=== PATIENT | male | born 1965 | race Caucasian/White ===

== ENCOUNTER 2016-10-03 16:28 | Observation (INO) | payer MEDICARE, MEDICAID ==
[~2016-10-03] VITALS: Ht 180.3 cm; Wt 110.9 kg
[2016-10-03 18:11] LABS: BASOPHILS 0.5 % (0.0-2.0); EOSINOPHILS 3.9 % (0-7); HEMATOCRIT 42.1 % (42.0-54.0); HEMOGLOBIN 14.8 g/dL (13.5-17.5); IMMATURE GRANULOCYTES 0.7 % (0-5); LYMPHOCYTES 47.7 % (15-50); MCH 30.1 pg (26.0-34.0); MCHC 35.2 g/dL (31.0-37.0); MCV 85.7 fL (80.0-100.0); MEAN PLATELET VOLUME 11.8 fL (7.4-10.4); MONOCYTES 7.7 % (2-11); NEUTROPHILS 39.5 % (40-80); PLATELET COUNT 123 10x3/uL (130-400); RBC 4.91 10x6/uL (4.20-6.10); RDW 13.6 % (11.5-14.5); WBC 4.2 10x3/uL (4.8-10.8)
[2016-10-03 18:17] LABS: APPEARANCE CLEAR (CLEAR); BILIRUBIN NEGATIVE (NEGATIVE); COLOR YELLOW (YELLOW); GLUCOSE 1000 mg/dL (NEGATIVE); KETONE NEGATIVE (NEGATIVE); LEUKOCYTE ESTERASE NEGATIVE (NEGATIVE); NITRITE NEGATIVE (NEGATIVE); PROTEIN NEGATIVE (NEGATIVE); UROBILINOGEN NORMAL (NORMAL)
[2016-10-03 18:18] LABS: BACTERIA NONE SEEN /hpf (NONE SEEN); EPITHELIAL CELLS NSEEN /hpf (0-5); RED CELLS - URINE 0-5 /hpf (0-5); WHITE CELLS - URINE NSEEN /hpf (0-5)
[2016-10-03 18:24] LABS: KETONE - SERUM NEGATIVE (NEGATIVE)
[2016-10-03 18:34] LABS: ALBUMIN 4.1 g/dL (3.4-5.0); ALKALINE PHOSPHATASE 64 U/L (46-116); ALT (SGPT) 49 U/L (10-68); CALCIUM 9.1 mg/dL (8.5-10.1); CARBON DIOXIDE 23.9 mmol/L (21.0-32.0); CHLORIDE - SERUM 98 mmol/L (98-107); CREATINE KINASE 203 UL (21-232); CREATININE - SERUM 1.3 mg/dL (0.6-1.3); POTASSIUM - SERUM 4.1 mmol/L (3.5-5.1); PROTEIN - SERUM 7.8 g/dL (6.4-8.2); SODIUM 136 mmol/L (136-145); UREA NITROGEN 32 mg/dL (7-18); eGFR NON AFRICAN AMERICAN 61 mL/min (90-120)
[2016-10-03 18:39] LABS: CALC OSMOLALITY 286 mosm/kg (275-300); GLUCOSE 234 mg/dL (74-106); TROPONIN-I < 0.017 ng/mL (0.000-0.060)
--- NOTE | 2016-10-03 19:35 | NUR ---
REPORT RECEIVED FROM WILL RANDALL.
--- NOTE | 2016-10-03 19:47 | NUR ---
ARRIVED TO FLOOR VIA WHEELCHAIR, ACCOMPANIED BY HOSPITAL STAFF. ORIENTED TO UNIT. PLACED ON TELEMETRY, CALL LIGHT IN REACH. PLAN OF CARE DISCUSSED. WILL CONTINUE TO MONITOR. SEE NURSE ASSESSMENT.
[2016-10-03 20:00] VITALS: BP 129/76
[2016-10-03 20:32] VITALS: BP 129/76; Ht 180.3 cm; Wt 110.9 kg
[2016-10-04] VITALS: BP 106/63
[2016-10-04 01:20] LABS: CKMB 2.9 U/L (0.0-3.6); CREATINE KINASE 135 UL (21-232)
[2016-10-04 01:39] LABS: TROPONIN-I < 0.017 ng/mL (0.000-0.060)
[2016-10-04 04:00] VITALS: BP 136/83
[2016-10-04] MEDS ORDERED: LOVAZA1 G PO (05:53)
[2016-10-04] MEDS ORDERED: CRESTOR40 MG PO (05:53)
[2016-10-04] MEDS ORDERED: FENOFIBRATE160 MG PO (05:54)
[2016-10-04] MEDS ORDERED: GLIMEPIRIDE4 MG PO (05:54)
[2016-10-04] MEDS ORDERED: OMEPRAZOLE20 M1 PO (05:54)
[2016-10-04] MEDS ORDERED: INVOKAMET 150-1 EACH PO (05:55)
[2016-10-04] MEDS ORDERED: LISINOPRIL2.5 MG PO (05:55)
[2016-10-04] MEDS ORDERED: BRILINTA90 MG PO (05:55)
[2016-10-04] MEDS ORDERED: ISOSORBIDE MONO60 M1 PO (05:56)
[2016-10-04] MEDS ORDERED: METOPROLOL TAR100 M1 PO (05:56)
[2016-10-04] MEDS ORDERED: VICTOZA0.6 MG/0.1 SQ (05:56)
[2016-10-04] MEDS ORDERED: HYDROCODONE-APA1 TAB PO (05:57)
[2016-10-04] MEDS ORDERED: LYRICA100 MG PO (05:59)
[2016-10-04] MEDS ORDERED: ISOSORBIDE MONO30 M1 PO (06:01)
[2016-10-04] MEDS ORDERED: NITROQUICK0.4 MG SL (06:01)
[2016-10-04] MEDS ORDERED: SEREVENT D50 MCG/DIS INH (06:01)
[2016-10-04] MEDS ORDERED: VALIUM5 MG PO (06:02)
[2016-10-04 06:38] LABS: CKMB 2.9 U/L (0.0-3.6); CREATINE KINASE 125 UL (21-232)
[2016-10-04 06:40] LABS: TROPONIN-I < 0.017 ng/mL (0.000-0.060)
--- NOTE | 2016-10-04 07:30 | NUR ---
RECEIVED PT IN BED EYES CLOSED RESP UNLABORED NAD NOTED
[2016-10-04 08:00] VITALS: BP 108/77
[2016-10-04 12:00] VITALS: BP 123/78
[2016-10-04 14:07] LABS: CKMB 2.8 U/L (0.0-3.6); CREATINE KINASE 123 UL (21-232); TROPONIN-I < 0.017 ng/mL (0.000-0.060)
--- NOTE | 2016-10-04 15:20 | NUR ---
REVIEWED DISCHARGE INSTRUCTIONS PT STATE UNDERSTANDING COPY GIVEN TO PT DCD SALINE LOCK TO RAC WITH 20 GA IV CATH INTACT NO REDNESS OR EDEMA NOTED TO SITE
--- NOTE | 2016-10-04 15:25 | NUR ---
PT DISCHARGED HOME IN STABLE CONDITION LEFT UNIT VIA W/C WITH ALL PERSONAL BELONGINGS
== END 2016-10-04 15:25 | disposition home or self-care (01) ==
LOC: D.ER 16:28 → OBSVTIME 18:53 → D.M2 18:53 → D.SDCHOLD 10-04 14:01 → D.M2 10-04 14:01
PROVIDERS: Emergency Medicine; ADMIT Family Medicine
DX: M25.512 Pain in left shoulder (principal); I25.110 Atherosclerotic heart disease of native coronary artery with unstable angina pectoris; Z95.5 Presence of coronary angioplasty implant and graft; E11.65 Type 2 diabetes mellitus with hyperglycemia; I10 Essential (primary) hypertension; E78.5 Hyperlipidemia, unspecified; Z87.891 Personal history of nicotine dependence

== ENCOUNTER 2016-10-31 15:16 | Emergency (ER) | payer MEDICARE, MEDICAID ==
[2016-10-03 20:32] VITALS: BMI 31.3
[~2016-10-31 15:16] MED LIST: BRILINTA90 MG PO; CRESTOR40 MG PO; FENOFIBRATE160 MG PO; GLIMEPIRIDE4 MG PO; HYDROCODONE-APA1 TAB PO; INVOKAMET 150-1 EACH PO; ISOSORBIDE MONO30 M1 PO; ISOSORBIDE MONO60 M1 PO; LISINOPRIL2.5 MG PO; LOVAZA1 G PO; LYRICA100 MG PO; METOPROLOL TAR100 M1 PO; NITROQUICK0.4 MG SL; OMEPRAZOLE20 M1 PO; SEREVENT D50 MCG/DIS INH; VALIUM5 MG PO; VICTOZA0.6 MG/0.1 SQ
[2016-10-31 16:55] LABS: BASOPHILS 0.3 % (0.0-2.0); EOSINOPHILS 2.8 % (0-7); HEMATOCRIT 39.7 % (42.0-54.0); HEMOGLOBIN 13.7 g/dL (13.5-17.5); IMMATURE GRANULOCYTES 0.3 % (0-5); LYMPHOCYTES 22.8 % (15-50); MCH 29.7 pg (26.0-34.0); MCHC 34.5 g/dL (31.0-37.0); MCV 86.1 fL (80.0-100.0); MEAN PLATELET VOLUME 11.4 fL (7.4-10.4); MONOCYTES 7.5 % (2-11); NEUTROPHILS 66.3 % (40-80); PLATELET COUNT 119 10x3/uL (130-400); RBC 4.61 10x6/uL (4.20-6.10); RDW 13.9 % (11.5-14.5); WBC 6.1 10x3/uL (4.8-10.8)
[2016-10-31 17:09] LABS: ALBUMIN 3.9 g/dL (3.4-5.0); ALKALINE PHOSPHATASE 52 U/L (46-116); ALT (SGPT) 57 U/L (10-68); BILIRUBIN - TOTAL 0.35 mg/dL (0.2-1.3); CALC OSMOLALITY 283 mosm/kg (275-300); CALCIUM 9.1 mg/dL (8.5-10.1); CHLORIDE - SERUM 100 mmol/L (98-107); CREATININE - SERUM 1.5 mg/dL (0.6-1.3); GLUCOSE 219 mg/dL (74-106); POTASSIUM - SERUM 4.3 mmol/L (3.5-5.1); PROTEIN - SERUM 7.8 g/dL (6.4-8.2); SODIUM 137 mmol/L (136-145); UREA NITROGEN 22 mg/dL (7-18); eGFR NON AFRICAN AMERICAN 52 mL/min (90-120)
[2016-10-31 17:12] LABS: CREATINE KINASE 156 UL (21-232); TROPONIN-I < 0.017 ng/mL (0.000-0.060)
== END 2016-10-31 19:45 | disposition home or self-care (01) ==
LOC: D.ER 15:16
PROVIDERS: Physician Assistant
DX: R07.9 Chest pain, unspecified (principal); M79.602 Pain in left arm; I25.10 Atherosclerotic heart disease of native coronary artery without angina pectoris; E11.9 Type 2 diabetes mellitus without complications; J44.9 Chronic obstructive pulmonary disease, unspecified; I10 Essential (primary) hypertension; I44.0 Atrioventricular block, first degree

== ENCOUNTER 2016-12-04 18:29 | Emergency (ER) | payer MEDICARE, MEDICAID ==
[2016-10-03 20:32] VITALS: BMI 31.3
[2016-12-04 18:58] LABS: BASOPHILS 0.2 % (0.0-2.0); EOSINOPHILS 3.1 % (0-7); HEMATOCRIT 40.1 % (42.0-54.0); HEMOGLOBIN 13.6 g/dL (13.5-17.5); IMMATURE GRANULOCYTES 1.4 % (0-5); LYMPHOCYTES 42.5 % (15-50); MCH 29.4 pg (26.0-34.0); MCHC 33.9 g/dL (31.0-37.0); MCV 86.8 fL (80.0-100.0); MEAN PLATELET VOLUME 11.2 fL (7.4-10.4); MONOCYTES 7.4 % (2-11); NEUTROPHILS 45.4 % (40-80); PLATELET COUNT 111 10x3/uL (130-400); RBC 4.62 10x6/uL (4.20-6.10); RDW 13.4 % (11.5-14.5); WBC 4.2 10x3/uL (4.8-10.8)
[2016-12-04 19:16] LABS: ALBUMIN 3.8 g/dL (3.4-5.0); ANION GAP 17.5 mmol/L (8-16); BILIRUBIN - TOTAL 0.27 mg/dL (0.2-1.3); CALCIUM 8.7 mg/dL (8.5-10.1); CARBON DIOXIDE 21.8 mmol/L (21.0-32.0); CREATININE - SERUM 1.3 mg/dL (0.6-1.3); POTASSIUM - SERUM 4.3 mmol/L (3.5-5.1); PROTEIN - SERUM 7.6 g/dL (6.4-8.2)
== END 2016-12-05 01:10 | disposition home or self-care (01) ==
LOC: D.ER 18:29
PROVIDERS: Family Medicine
DX: E11.65 Type 2 diabetes mellitus with hyperglycemia (principal); Z79.4 Long term (current) use of insulin; J44.9 Chronic obstructive pulmonary disease, unspecified; I10 Essential (primary) hypertension; I25.10 Atherosclerotic heart disease of native coronary artery without angina pectoris

== ENCOUNTER 2016-12-14 18:32 | Emergency (ER) | payer MEDICARE, MEDICAID ==
[2016-10-03 20:32] VITALS: BMI 31.3
[2016-12-14 19:53] LABS: BASOPHILS 0.3 % (0.0-2.0); EOSINOPHILS 3.3 % (0-7); HEMATOCRIT 41.4 % (42.0-54.0); HEMOGLOBIN 14.1 g/dL (13.5-17.5); IMMATURE GRANULOCYTES 0.8 % (0-5); LYMPHOCYTES 44.9 % (15-50); MCH 29.9 pg (26.0-34.0); MCHC 34.1 g/dL (31.0-37.0); MCV 87.9 fL (80.0-100.0); MEAN PLATELET VOLUME 12.5 fL (7.4-10.4); MONOCYTES 7.4 % (2-11); NEUTROPHILS 43.3 % (40-80); PLATELET COUNT 101 10x3/uL (130-400); RBC 4.71 10x6/uL (4.20-6.10); WBC 3.9 10x3/uL (4.8-10.8)
[2016-12-14 19:56] LABS: APPEARANCE CLEAR (CLEAR); COLOR STRAW (YELLOW); LEUKOCYTE ESTERASE NEGATIVE (NEGATIVE); NITRITE NEGATIVE (NEGATIVE); PROTEIN NEGATIVE (NEGATIVE); SPECIFIC GRAVITY 1.015 (1.005-1.020)
[2016-12-14 19:57] LABS: BILIRUBIN NEGATIVE (NEGATIVE); GLUCOSE 250 mg/dL (NEGATIVE); KETONE NEGATIVE (NEGATIVE); UROBILINOGEN NORMAL (NORMAL)
[2016-12-14 20:01] LABS: ALBUMIN 4.1 g/dL (3.4-5.0); ALKALINE PHOSPHATASE 54 U/L (46-116); ALT (SGPT) 62 U/L (10-68); BILIRUBIN - TOTAL 0.38 mg/dL (0.2-1.3); CALC OSMOLALITY 286 mosm/kg (275-300); CALCIUM 9.6 mg/dL (8.5-10.1); CHLORIDE - SERUM 98 mmol/L (98-107); CREATININE - SERUM 1.5 mg/dL (0.6-1.3); GLUCOSE 335 mg/dL (74-106); POTASSIUM - SERUM 5.2 mmol/L (3.5-5.1); SODIUM 133 mmol/L (136-145); UREA NITROGEN 35 mg/dL (7-18); eGFR NON AFRICAN AMERICAN 52 mL/min (90-120)
[2016-12-14 20:07] LABS: KETONE - SERUM NEGATIVE (NEGATIVE)
[2016-12-14 20:22] LABS: AMYLASE - SERUM 31 U/L (25-115); CREATINE KINASE 403 UL (21-232); LIPASE 198 U/L (73-393); PRO BNP 30 pg/mL (0-125); THYROID STIMULATING HORMONE 2.12 uIU/mL (0.36-3.74)
[2016-12-14 20:26] LABS: HEMOGLOBIN A1C 7.3 % (4.8-6.0); TROPONIN-I < 0.017 ng/mL (0.000-0.060)
[2016-12-14 20:27] LABS: CKMB 6.7 U/L (0.0-3.6)
== END 2016-12-14 20:48 | disposition home or self-care (01) ==
LOC: D.ER 18:32
PROVIDERS: Emergency Medicine; Family Medicine
DX: E11.65 Type 2 diabetes mellitus with hyperglycemia (principal); Z79.4 Long term (current) use of insulin; J44.9 Chronic obstructive pulmonary disease, unspecified; I10 Essential (primary) hypertension; I44.0 Atrioventricular block, first degree

== ENCOUNTER 2016-12-27 18:34 | Emergency (ER) | payer MEDICARE, MEDICAID ==
[2016-10-03 20:32] VITALS: BMI 31.3
== END 2016-12-27 22:26 | disposition left against medical advice (07) ==
LOC: D.ER 18:34
DX: M54.12 Radiculopathy, cervical region (principal); M54.16 Radiculopathy, lumbar region; R51 Headache; E11.9 Type 2 diabetes mellitus without complications; Z79.4 Long term (current) use of insulin; V89.2XXA Person injured in unspecified motor-vehicle accident, traffic, initial encounter; Y93.89 Activity, other specified; Y92.410 Unspecified street and highway as the place of occurrence of the external cause; J44.9 Chronic obstructive pulmonary disease, unspecified; I10 Essential (primary) hypertension

== ENCOUNTER 2016-12-28 10:34 | Emergency (ER) | payer MEDICARE, MEDICAID ==
[2016-10-03 20:32] VITALS: BMI 31.3
== END 2016-12-28 13:24 | disposition home or self-care (01) ==
LOC: D.ER 10:34
DX: M54.5 Low back pain (principal)

== ENCOUNTER 2017-09-09 19:42 | Emergency (ER) | payer MEDICARE, MEDICAID ==
[2016-10-03 20:32] VITALS: BMI 31.3
[2017-09-09 20:08] LABS: BASOPHILS 0.4 % (0-2); EOSINOPHILS 4.6 % (0-7); HEMATOCRIT 39.4 % (42.0-54.0); HEMOGLOBIN 13.7 g/dL (13.5-17.5); IMMATURE GRANULOCYTES 0.2 % (0-5); LYMPHOCYTES 36.3 % (15-50); MCH 30.4 pg (26.0-34.0); MCHC 34.8 g/dL (31.0-37.0); MCV 87.6 fL (80.0-100.0); MEAN PLATELET VOLUME 12.1 fL (7.4-10.4); MONOCYTES 7.6 % (2-11); NEUTROPHILS 50.9 % (40-80); PLATELET COUNT 100 10x3/uL (130-400); RDW 13.5 % (11.5-14.5); WBC 4.7 10x3/uL (4.8-10.8)
[2017-09-09 20:19] LABS: ALKALINE PHOSPHATASE 51 U/L (46-116); ALT (SGPT) 72 U/L (10-68); BILIRUBIN - TOTAL 0.32 mg/dL (0.2-1.3); CALC OSMOLALITY 284 mosm/kg (275-300); CARBON DIOXIDE 19.9 mmol/L (21.0-32.0); CHLORIDE - SERUM 101 mmol/L (98-107); CREATININE - SERUM 1.4 mg/dL (0.6-1.3); PROTEIN - SERUM 7.4 g/dL (6.4-8.2); SODIUM 138 mmol/L (136-145); UREA NITROGEN 28 mg/dL (7-18); eGFR NON AFRICAN AMERICAN 56 mL/min (90-120)
[2017-09-09 20:22] LABS: GLUCOSE 146 mg/dL (74-106)
[2017-09-09 20:32] LABS: CKMB 3.5 U/L (0.0-3.6); CREATINE KINASE 193 UL (21-232)
[2017-09-09 20:48] LABS: TROPONIN-I < 0.017 ng/mL (0.000-0.060)
== END 2017-09-09 22:00 | disposition home or self-care (01) ==
LOC: D.ER 19:42
PROVIDERS: Family Medicine
DX: R07.9 Chest pain, unspecified (principal); I10 Essential (primary) hypertension; E11.9 Type 2 diabetes mellitus without complications; Z79.4 Long term (current) use of insulin

== ENCOUNTER 2017-10-26 07:53 | Emergency (ER) | payer MEDICARE, MEDICAID ==
[2016-10-03 20:32] VITALS: BMI 31.3
== END 2017-10-26 10:27 | disposition home or self-care (01) ==
LOC: D.ER 07:53
DX: J20.9 Acute bronchitis, unspecified (principal); J44.9 Chronic obstructive pulmonary disease, unspecified; E11.9 Type 2 diabetes mellitus without complications; Z79.4 Long term (current) use of insulin; I10 Essential (primary) hypertension

== ENCOUNTER 2017-12-28 19:02 | Emergency (ER) | payer MEDICARE, MEDICAID ==
[2016-10-03 20:32] VITALS: BMI 31.3
== END 2017-12-28 21:08 | disposition home or self-care (01) ==
LOC: D.ER 19:02
DX: M54.30 Sciatica, unspecified side (principal); M62.838 Other muscle spasm; J44.9 Chronic obstructive pulmonary disease, unspecified; I10 Essential (primary) hypertension; E11.9 Type 2 diabetes mellitus without complications; Z79.4 Long term (current) use of insulin

== ENCOUNTER 2018-02-11 13:30 | Emergency (ER) | payer MEDICARE, MEDICAID ==
[~2018-02-11] VITALS: Ht 180.3 cm; Wt 107.7 kg
[2018-02-11 13:47] VITALS: BP 152/80; Ht 180.3 cm; Wt 107.7 kg
== END 2018-02-11 15:40 | disposition left against medical advice (07) ==
LOC: D.ER 13:30
DX: M25.511 Pain in right shoulder (principal)

== ENCOUNTER 2018-03-02 17:57 | Emergency (ER) | payer MEDICARE, MEDICAID ==
[~2018-03-02] VITALS: Ht 180.3 cm; Wt 108.2 kg
[2018-03-02 19:11] VITALS: BP 112/74; Ht 180.3 cm; Wt 108.2 kg
== END 2018-03-02 20:10 | disposition left against medical advice (07) ==
LOC: D.ER 17:57
DX: M54.2 Cervicalgia (principal)

== ENCOUNTER 2018-08-09 17:27 | Observation (INO) | payer MEDICARE, MEDICAID ==
[~2018-08-09] VITALS: Ht 177.8 cm; Wt 105.2 kg
--- NOTE | ~2018-08-09 | CN ---
PATIENT NAME:ROBERT TSE [place] MEDICAL RECORD: [id number] : 61 LOCATION:D. D.2121 ADMIT DATE: 08/09/18 ACCOUNT: [id number] CONSULTING PHYSICIAN: BRENDEN DAVIS MD REFERRING PHYSICIAN: ZHANNA SOLER MD DATE OF CONSULTATION: 08/10/2018 HISTORY OF PRESENT ILLNESS: A 52-year-old gentleman with known history of coronary artery disease, status post intervention, has a history of dyslipidemia as well as hypertension and diabetes. Recently he has had chest burning and pressure, reminiscent previous angina. We are asked to see him concerning his cardiovascular status. PAST MEDICAL HISTORY: Includes: 1. History of hypertension. 2. Hyperlipidemia. 3. Coronary artery disease as above. SOCIAL HISTORY: He is a nonsmoker, nondrinker. Easily takes care of all his ADLs. ALLERGIES: SULFA. MEDICATIONS: Include Crestor 40 mg p.o. daily, Amaryl 4 mg p.o. daily, fenofibrate 160 mg daily, Brilinta 90 b.i.d., lisinopril 2.5 every day, Victoza 0.6 daily, Imdur 60 mg p.o. daily, Lopressor 100 b.i.d., Lyrica 100 b.i.d., Serevent Diskus 1 puff b.i.d. REVIEW OF SYSTEMS: The patient reports easy bruising but reports no swollen glands. The patient reports no fever, no night sweats, no significant weight gain, no significant weight loss. No significant exercise tolerance. The patient reports no dry eyes, no irritation, no vision change. Patient reports no difficulty hearing and no ear pain. Patient reports no frequent nose bleeds or nose and sinus problems. Patient reports on arm pain on exertion. No shortness of breath while lying down. No history of heart murmur. Patient reports no cough, no wheezing or coughing up blood. Patient reports no abdominal pain, no vomiting. Normal appetite. No diarrhea and not vomiting blood. No nausea and no constipation. Patient reports no incontinence. No difficulty urinating. No hematuria. No increased frequency. Patient reports no muscle aches. No weakness, no arthralgias, no back pain. No swelling of the extremities. Patient reports no abnormal mole, no jaundice, no rashes. Reports no loss of consciousness. No weakness and no numbness. No seizures, dizziness, or headaches. The patient reports no depression, no sleep disturbance, feeling safe in a relationship and no alcohol abuse. Patient reports on fatigue. Reports no runny nose or sinus pressure. No itching, no hives, and no frequent sneezing. PHYSICAL EXAMINATION: GENERAL: Pleasant gentleman, in no acute distress, appears stated age. VITAL SIGNS: Blood pressure 126/76, pulse 82 and regular. HEENT: Normocephalic, atraumatic. NECK: No JVD or bruit. HEART: Regular. LUNGS: Lung mesa clear. ABDOMEN: Soft, nontender. CONSULT REPORT [id number] ROBERT TSE EXTREMITIES: Pulses 2+ with no edema. NEUROLOGIC: Grossly intact. DIAGNOSTIC DATA: ECG shows nonspecific ST-T changes. IMPRESSION: Acute coronary syndrome. PLAN: Plan for diagnostic angiography, intervention based on the above. TRANSINT:[id number] Voice Confirmation ID: [id number] DOCUMENT ID: [id number] BRENDEN DAVIS MD CC: [id number] DICTATION DATE: 08/10/18831 TUNNEL KILN REPAIRER: 08/10/18911 ADM IN [place] [id number] [place] [id number]
--- NOTE | ~2018-08-09 | OP ---
PATIENT NAME: ROBERT TSE [place] MEDICAL RECORD: [id number] :61 LOCATION:D.M2 D.2121 ADMISSION DATE:08/09/18 SURGEON: BRENDEN DAVIS MD DATE OF OPERATION: 08/10/2018 PROCEDURE: Left heart catheterization, selective coronary angiography, PTCA to diagonal, right femoral artery approach. CATHETERS: A 5-Trinidadian sheath, 5/4 left and right Dwayne, 5/4 pig. The procedure was well tolerated. Proceed to PTCA of the diagonal. FINDINGS: Left ventriculography in 30-degree COLMENARES view; normal wall motion and normal systolic function. CORONARY ANATOMY: LEFT MAIN: Left main is free of disease. LAD: LAD has 2 overlapping stents in its proximal to mid portion. These are widely patent; however, there is a fairly large diagonal branch. It is snowplowed from previous intervention. CIRCUMFLEX: Circumflex is free of disease. RIGHT CORONARY ARTERY: Area of previous intervention patent with no evidence of restenosis. No progression of nome disease. PLAN: Intervention to the diagonal momentarily. DESCRIPTION OF PROCEDURE: A 5-Trinidadian sheath was exchanged for a 6-Trinidadian sheath. XB LAD guiding catheter provided good guide support followed by 300-cm Whisper wire was placed across tightly occluded diagonal down this portion of vessel. We were able to pass a 1.5 and 2.0 balloon through the stent struts and inflated it up to 12 atmospheres. Both inflations showed 50% residual. Larger balloons and/or stents had been placed through the struts of the stent. Procedure was well tolerated at this point. IMPRESSION: Successful PTCA of diagonal through the interlocking stent struts with 50% residual, improvement from 90%. LOIS flow was 3 throughout the procedure. Integrilin was used in the case. Sheath was closed with ExoSeal device. TRANSINT:[id number] Voice Confirmation ID: [id number] DOCUMENT ID: [id number] BRENDEN DAVIS MD CC: [id number] DICTATION DATE: 08/10/18 1412 SIGN LETTERER: 08/10/18 1727 DIS IN 08/10/18 [facility] [address] [place] [id number]
--- NOTE | ~2018-08-09 | MORECARE ---
CASE MANAGEMENT DISCHARGE SUMMARY PATIENT: ROBERT TSE [place] UNIT: [id number] ADM DATE: 08/09/18 AGE: 52 : 63 SEX: M ROOM/BED: D.2121 AUTHOR: NGOZI HERNANDEZ PHYSICIAN: REFERRING PHYSICIAN: ZHANNA SOLER MD DATE OF SERVICE: 08/11/18 Discharge Plan Patient Name[facility]SE [facility] [facility] 1965 Planned Disposition: Home Anticipated Discharge Date: 08/10/18 Discharge Date: 08/10/2018 Expected LOS: 1 Initial Reviewer: [email or web address] Initial Review Date: 08/11/2018 Generated: 08/11/18 12:54 pm Patient Name: ROBERT TSE Page [phone] at 1155 All edits/amendments must be made on the electronic document DICTATION DATE: 08/11/18 1154 BLASTER HELPER: MAY 08/11/18 1154 RPT#: [id number] DC DATE:08/10/18 STATUS: DIS IN [facility] [address] [place] [address] END OF REPORT
--- NOTE | ~2018-08-09 | HEMODYNAMI ---
PATIENT:ROBERT TSE [place] MEDICAL RECORD: [id number] : 61 LOCATION:[address] ADMISSION DATE: 08/09/18 Generatedon:08/10/201814:12 Patient name: ROBERT TSE Patient #: [id number] SSN: : 1965 Date of study: 08/10/2018 Page: Of Hemodynamic Procedure Report Patient Data Patient Demographics Procedure consent was obtained First Name: ROBERT Gender: Male Last Name: CARMENCITA : 1965 [facility] Initial: [place] Age: 52 year(s) Patient #: [id number] Race: Unknown Additional ID: [id number] Contact details Address: [address] [place] [address] State: [place] City: [facility] Zip code: [address] Admission Admission Data Admission Date: 08/09/2018 Admission Time: 19:01 Room #: D.2121 Height (in.): 69.69 BSA: 2.21 (m2) Height (cm.): 177 BMI: 33.52 (kg/m2) Weight (lbs.): 231.49 Weight (kg.): 105 Lab Results Lab Result Date: 08/10/2018 Lab Result Time: 0:00 Biochemistry Name Units Result Min Max BUN mg/dl 34 --(----)-* 7 18 Creatinine mg/dl 1.3 --(---*)-- 0.6 1.3 CBC Name Units Result Min Max Hemoglobin g/dl 14 --(*---)-- 13.5 17.5 Procedure Procedure Types Cath Procedure Diagnostic Procedure LHC LHC w/Coronaries PCI Procedure PTCA PTCA Initial Procedure Description Procedure Date Procedure Date: 08/10/2018 Procedure Start Time: 13:36 Procedure End Time: 14:02 Procedure Staff Name Function Arnoldo Ordaz MD Performing Physician Shiela Meade RT Monitor Maite Mota RN Nurse Gaby Gu RT Scrub Procedure Data Cath Procedure Fluoroscopy Diagnostic fluoroscopy Total fluoroscopy Time: 9.2 time: 9.2 min min Diagnostic fluoroscopy Total fluoroscopy dose: dose: 1578 mGy 1578 mGy Contrast Material Contrast Material Type Amount (ml) Isovue 300 108 Entry Location Entry Primary Successful Side Size Upsize Upsize Entry Closure Succes sful Closure Location (Fr) 1 (Fr) 2 (Fr) Remarks Device Remarks Femoral Right 5 Fr 6 Fr Exoseal artery Short Estimated blood loss: 5 ml Diagnostic catheters Device Type Used For End Catheter Placement MULTIPACK JL 4.0 5Fr Left Coronary catheter Angiography MULTIPACK 3DRC 5Fr Right Coronary catheter Angiography MULTIPACK Pigtail 5 Fr Multi-vessel catheter Angiography Procedure Complications No complications Procedure Medications Medication Administration Route Dosage Oxygen etCO2 Nasal cannula 2 l/min Lidocaine 2% added to field 20 Heparin Flush Bag added to field 2 bags (1000units/500ml NS) 0.9% NaCl I.V. 100 ml/hr Versed I.V. 2 mg Fentanyl I.V. 100 mcg Heparin Bolus I.V. 4000 units Integrilin (Bolus I.V. 9.5 ml 2mg/ml) Versed I.V. 2 mg Fentanyl I.V. 100 mcg Brilinta P.O. 180 mg Hemodynamics Rest BSA: 2.21 (m2) HGB: 14 (g/dl) O2 Consumption: Estimated: 267.49 (ml/min) O2 Cons umption indexed: Estimated:121.04 (ml/min/m) Heart Rate: 76 (bpm) Pressure Samples Time Site Value (mmHg) Purpose Heart Use Rate(bpm) 13:42 LV 138/8,13 Snapshot 85 Gradients Valve Time Site Site Mean SEP/DFP Peak To Heart Use 1 2 (mmHg) (sec/min) Peak Rate (mmHg) (bpm) Aortic 13:42 LV AO 80 Snapshots Pre Cath Intra NCS Post Cath Vital Signs Time Heart Resp SPO2 etCO2 NIBP (mmHg) Rhythm Pain Sedation Rate (ipm) (%) (mmHg) Status Level (bpm) 13:20:48 74 16 94 24.9 151/79(125) NSR 0 (11) 10(A) , No pain 13:25:06 76 15 96 34.8 143/82(99) NSR 0 (11) 10(A) , No pain 13:29:24 74 15 97 17.4 151/85(100) NSR 0 (11) 10(A) , No pain 13:33:38 79 15 96 19.6 140/86(103) NSR 0 (11) 10(A) , No pain 13:37:59 76 14 97 38.5 144/78(111) NSR 0 (11) 9(A) , No pain 13:42:14 82 15 96 40 132/87(104) NSR 0 (11) 9(A) , No pain 13:46:31 86 16 96 40.8 139/87(104) NSR 0 (11) 9(A) , No pain 13:50:51 83 18 96 37 134/83(102) NSR 0 (11) 9(A) , No pain 13:55:09 84 14 96 36.3 135/86(109) NSR 0 (11) 10(A) , No pain 13:59:27 85 14 96 38.6 136/86(104) NSR 0 (11) 10(A) , No pain Medications Time Medication Route Dose Verified Delivered Reason Notes Effectiveness by by 13:18:53 Oxygen etCO2 2 Arnoldo Arora used for Nasal l/min St Robert Mota RN procedure cannula 13:19:00 Lidocaine 2% added 20ml Arnoldo Montalvoory for local to vial [facility] anesthetic field MD HEATON 13:19:14 Heparin Flush added 2 Arnoldo Arnoldo used for Bag to bags [facility] procedure (1000units/500ml field MD HEATON NS) 13:19:23 0.9% NaCl I.V. 100 Arnoldo Arora Per physician ml/hr St Robert Mota RN, MD 13:26:44 Versed I.V. 2 mg Arnoldo Tomie for sedation St Robert Mota RN, MD 13:26:52 Fentanyl I.V. 100 Arnoldo Buffie for sedation mcg St Robert Mota RN, MD 13:32:34 Versed I.V. 2 mg Arnoldo Tomie for sedation St Robert Mota RN, MD 13:32:38 Fentanyl I.V. 100 Arnoldo Tomie for sedation mcg St Robert Mota RN, MD 13:43:50 Heparin Bolus I.V. 4000 Arnoldo Tomie for verif ied units St Robert Mota RN anticoagulation with dr MD blankenship 13:46:04 Integrilin I.V. 9.5 Arnoldo Tomie for waste d (Bolus 2mg/ml) ml Orlin Mota RN antiplatelet 0.5 ml MD therapy of vial 14:10:04 Brilinta P.O. 180 Arnoldo Arora for mg St Robert Mota RN antiplatelet MD therapy Procedure Log Time Note 12:42:32 Patient Height : 69.69 inches 12:42:40 Patient Weight : 231.49 lbs 12:43:17 Lab Result : Hemoglobin 14 g/dl 12:43:17 Lab Result : Creatinine 1.3 mg/dl 12:43:17 Lab Result : BUN 34 mg/dl 12:43:40 Diagnostic Cath status Elective 12:43:42 Maite Mota RN sent for patient. Start room use. 12:43:43 Time tracking: Regular hours (M-F 7:00 - 5:00) 12:43:49 Plan of Care:Hemodynamics will remain stable., Cardiac rhythm will remain stable., Comfort level will be maintained., Respiratory function will remain adequate., Patient/ family verbilizes understanding of procedure., Procedure tolerated without complication., Recovers from procedure without complications.. 13:18:53 Oxygen 2 l/min etCO2 Nasal cannula was administered by Maite Mota RN; used for procedure; 13:19:00 Lidocaine 2% 20ml vial added to field was administered by Arnoldo Ordaz MD; for local anesthetic; 13:19:14 Heparin Flush Bag (1000units/500ml NS) 2 bags added to field was administered by Arnoldo Ordaz MD; used for procedure; 13:19:23 0.9% NaCl 100 ml/hr I.V. was administered by Maite Mota RN; Per physician; 13:19:34 Vital chart was started 13:20:05 Patient received from Med II to [facility] 2 Alert and oriented. Tansferred to table in Supine position. 13:20:06 Warm blankets applied, and patria hugger turned on for patient comfort. 13:20:07 Correct patient and procedure confirmed by team. 13:20:08 Signed procedure consent form obtained from patient. 13:20:09 ECG and BP/O2 sat monitors applied to patient. 13:20:10 Baseline sample Acquired. 13:20:13 Rhythm: sinus rhythm 13:20:14 Full Disclosure recording started 13:20:18 H&P Date Dictated: 08/10/2018 Within 30 days and on chart., H&P Addendum completed by physician on day of procedure. (MUST COMPLETE FOR ALL OUTPATIENTS). 13:20:57 Pre-procedure instructions explained to patient. 13:20:58 Pre-op teaching completed and patient verbalized understanding. 13:20:59 Family in patients room. 13:21:07 Patient NPO since Midnight. 13:21:09 Is the patient allergic to Iodine/contrast media? No. 13:21:10 Was the patient premedicated? No 13:21:11 Is patient on blood thinner?No 13:21:12 Patient diabetic? Yes. 13:21:13 If diabetic: On Metformin? No 13:21:15 Previous problem with sedation/anesthesia? No ? 13:21:20 Snore? Yes 13:21:21 Sleep apnea? No 13:21:22 Deviated septum? No 13:21:23 Opens mouth fully? Yes 13:21:23 Sticks out tongue? Yes 13:21:27 Airway obstruction? Yes copd 13:21:30 Dentures? No ? 13:23:14 Pre procedure: right dorsailis pedis pulse 2+ Normal; easily identifiable; not easily obliterated 13:23:16 Pre procedure: left dorsailis pedis pulse 2+ Normal; easily identifiable; not easily obliterated 13:23:19 Patient pain scale 0/10 ?. 13:23:25 IV patent on arrival in left forearm with 0.9% NaCl at [facility]. 13:23:28 Lab results completed and on chart. 13:23:32 Right groin area was prepped with chlora-prep and draped in sterile fashion 13:23:33 Alarms reviewed by R. N. 13:23:33 Sharps counted by scrub and verified by R.N. 13:25:54 Physician arrived 13:25:54 --------ALL STOP TIME OUT------ 13:25:55 Final Timeout: patient, procedure, and site verified with staff and physician. All members of the team are in agreement. 13:25:57 Right groin site verified by team. 13:26:03 Physical assessment completed. ASA score P 3 - A patient with severe systemic disease as per Arnoldo Ordaz MD. 13:26:07 Sedation plan: IV Moderate Sedation Medication:Versed, Fentanyl 13::44 Versed 2 mg I.V. was administered by Maite Mota RN; for sedation; 13:26:52 Fentanyl 100 mcg I.V. was administered by Maite Mota RN; for sedation; 13:29:46 Use device set Femoral Dx 13:29:47 ACIST Syringe (29916) opened to sterile field. 13:29:48 Bag Decanter (2002S) opened to sterile field. 13:29:48 Medline Cath Pack ([id number]) opened to sterile field. 13:29:49 DIAGNOSTIC WIRE .035 260cm J wire (126957) opened to sterile field. 13:29:51 ACIST Hand Control (20474) opened to sterile field. 13:29:51 ACIST Manifold (77953) opened to sterile field. 13:29:52 DIAGNOSTIC Multipack 5Fr catheter set ([id number]) opened to sterile field. 13:29:52 Tegaderm 4 x 4 (1626W) opened to sterile field. 13:29:54 SHEATH 5FR Veteran (KZM240) opened to sterile field. 13:31:48 Zero performed for pressure channel P1 13:32:34 Versed 2 mg I.V. was administered by Maite Mota RN; for sedation; 13:32:38 Fentanyl 100 mcg I.V. was administered by Maite Mota RN; for sedation; 13:36:02 Procedure started. 13:36:23 Local anesthetic to right femoral artery with Lidocaine 2% by Arnoldo Ordaz MD.INITIAL ACCESS ONLY 13:36:37 A 5 Fr sheath was inserted into the Right Femoral artery 13:37:49 A MULTIPACK JL 4.0 5Fr catheter was advanced over the wire and used for Left Coronary Angiography. 13:38:09 LCA angiography performed. 13:38:36 Injector settings: Ml/sec: 3, Volume: 6, 13:39:58 Catheter removed. 13:40:03 A MULTIPACK 3DRC 5Fr catheter was advanced over the wire and used for Right Coronary Angiography. 13:40:09 RCA angiography performed. 13:40:14 Injector settings: Ml/sec: 3, Volume: 6, 13:40:46 Catheter removed. 13:40:52 A MULTIPACK Pigtail 5 Fr catheter was advanced over the wire and used for Multi-vessel Angiography. 13:42:35 LV hemodynamics recorded. 13:42:36 LV gram done using COLMENARES 13:42:39 Injector settings: Ml/sec: 5, Volume: 15, 13:42:44 EF : 55 % 13:42:56 Catheter removed. 13:42:57 Proceeding to intervention. 13:43:20 GUIDE 6FR XBLAD 3.5 catheter ([id number]) opened to sterile field. 13:43:20 WHISPER 300cm guide wire ([id number]) opened to sterile field. 13:43:21 INFLATOR Merit BasixCompak (VU5165) opened to sterile field. 13:43:22 SHEATH 6FR Veteran (INW463) opened to sterile field. 13:43:50 Heparin Bolus 4000 units I.V. was administered by Maite Mota RN; for anticoagulation; verified with dr blankenship 13:44:06 Sheath upsized to a 6 Fr Short. 13:44:13 6 Fr xblad 3.5 guide catheter was inserted over the wire 13:44:57 whisper wire advanced. 13:46:04 Integrilin (Bolus 2mg/ml) 9.5 ml I.V. was administered by Maite Mota RN; for antiplatelet therapy; wasted 0.5 ml of vial 13:49:21 The EMERGE OTW 2.0 x 15 balloon ([id number]) was advanced and then removed because of failure to cross lesion 13:51:59 Inflate balloon Inflation number: 1 A MAVERICK 1.5 X 9 balloon ([id number]) was prepped and advanced across the 1st Diag, then inflated to 12 MAIRA for 0:10 (min:sec). 13:53:25 Balloon removed over the wire. 13:55:28 Inflate balloon Inflation number: 2 A EMERGE OTW 2.0 x 15 balloon ([id number]) was prepped and advanced across the 1st Diag, then inflated to 10 MAIRA for 0:30 (min:sec). 13:56:14 Balloon removed over the wire. 13:59:49 The EMERGE OTW 2.5 x 8 balloon ([id number]) was advanced and then removed because of failure to cross lesion 14:00:06 Balloon removed over the wire. 14:00:08 Wire removed. 14:00:08 Guide catheter removed. 14:00:47 Sheath removed intact; hemostasis achieved with Exoseal to the Right Femoral artery. 14:00:49 Procedure ended.(Physican Out) 14:01:09 Fluoroscopy time 09.20 minutes. 14:01:15 Flurop Dose total: 1578 14:01:15 Fluoroscopy dose: 1578 mGy 14:01:36 Contrast amount:Isovue 300 108ml. 14:01:38 Sharps counted by scrub and verified by R.N. 14:01:39 Insertion/operative site no bleeding no hematoma. 14:01:43 Post-op/insertion site Right Femoral artery dressed using a 4 x 4 and Tegaderm. 14:01:46 Post right femoral artery:stable 14:01:47 Post Procedure Pulses reassessed and unchanged 14:01:50 Post procedure rhythm: unchanged. 14:01:53 Estimated blood loss: 5 ml 14:01:54 Post procedure instruction explained to patient.Patient verbalizes understanding. 14:01:56 Patient needs reinforcement of post procedure teaching. 14:02:16 Procedure type changed to Cath procedure, Diagnostic procedure, LHC, LHC w/Coronaries, PCI procedure, PTCA, PTCA Initial 14:02:17 Procedure and supply charges have been captured, reviewed, submitted and are correct. 14:02:21 Procedure Complication : No complications 14:02:30 Vital chart was stopped 14:02:31 See physician's report for complete and final results. 14:02:33 Report given to Pre/Post Procedure Room. 14:02:35 Patient transfered to Pre/Post Procedure Room with Stretcher. 14:02:38 Procedure ended. 14:02:38 Full Disclosure recording stopped 14:02:54 ACC-PCI Only Patient was given prescriptions, or instructed by Arnoldo Ordaz MD to start/continue the following medications upon discharge: Brilinta 14:02:55 End room use (Document Last) 14:03:37 EXOSEAL 6Fr (EX600) opened to sterile field. 14:10:04 Brilinta 180 mg P.O. was administered by Maite Mota RN; for antiplatelet therapy; Intervention Summary Intervention Notes Time ActionType Lesion and Equipment Action# Pressure Duration Attributes Used 13:49:21 Discard EMERGE OTW Balloon 2.0 x 15 balloon ([id number]) 13:51:59 Inflate 1st Diag MAVERICK 1.5 1 12 00:10 balloon X 9 balloon ([id number]) 13:55:28 Inflate 1st Diag EMERGE OTW 2 10 00:30 balloon 2.0 x 15 balloon ([id number]) 13:59:49 Discard EMERGE OTW Balloon 2.5 x 8 balloon ([id number]) Device Usage Item Name Manufacture Quantity Catalog Number Hospital Part Current Min imal Lot# / Charge Number Stock Stock Serial# Code ACIST Acist 1 37690 792327 245930 943436 20 Syringe Medical (82276) Systems Inc Bag Decanter Microtek 1 2001S 855777 74901 556719 5 () Medical Inc. Medline Cath Medline 1 [id number] 158244 45707 280716 5 Pack ([id number]) DIAGNOSTIC [facility] [place] 1 341356 423808 824976 940380 30 WIRE .035 260cm J wire (969605) ACIST Hand Acist 1 31589 431599 845224 740922 5 Control Medical (57945) Systems Inc ACIST Acist 1 99119 587013 461610 843708 5 Manifold Medical (07287) Systems Inc DIAGNOSTIC Cardinal 1 UM0984 431430 06523 147609 30 Multipack Health 5Fr catheter set (MB9044) Tegaderm 4 x 3M 1 1626W 628096 805007 840490 5 4 (1626W) SHEATH 5FR Terumo 1 MJZ550 488824 603594 196185 5 Veteran ([id number]) MULTIPACK JL Cardinal 1 009588 5 4.0 5Fr Health catheter MULTIPACK Cardinal 1 688673 5 3DRC 5Fr Health catheter MULTIPACK Cardinal 1 415363 5 Pigtail 5 Fr Health catheter GUIDE 6FR Cardinal 1 [id number] 530804 354818 998851 10 XBLAD 3.5 Health catheter (87652095) WHISPER Savage 1 [id number] 477927 540065 773993 5 300cm guide Vascular wire (5118541ZH) INFLATOR Merit 1 TB1144 275506 254364 542107 15 Merit Medical BasixCompak (SV7613) SHEATH 6FR Terumo 1 FIC658 820336 701648 020699 40 Veteran ([id number]) EMERGE OTW [place] 1 [id number] 026211 218195 805748 5 [id number] 2.0 x 15 Scientific balloon ([id number]) MAVERICK 1.5 [place] 1 [id number] 238216 704510 091815 1 39691021 X 9 balloon Scientific ([id number]) EMERGE OTW [place] 1 [id number] 895990 690013 996053 5 63360096 2.5 x 8 Scientific balloon ([id number]) EXOSEAL 6Fr Cardinal 1 EX600 940947 912059 283807 10 (EX600) Health Signature Audit [place] Stage Time Signature Unsigned Intra-Procedure 08/10/2018 Shiela Meade 2:12:42 PM RT(R) Signatures Monitor : Shiela Meade RT Signature : Date : Time : [place] [address] [place] [address]
[2018-08-09 17:45] VITALS: BP 131/69
[2018-08-09 17:53] LABS: BASOPHILS 0.4 % (0-2); EOSINOPHILS 4.7 % (0-7); IMMATURE GRANULOCYTES 0.6 % (0-5); LYMPHOCYTES 37.3 % (15-50); MCH 30.2 pg (26.0-34.0); MCV 86.4 fL (80.0-100.0); MEAN PLATELET VOLUME 11.5 fL (7.4-10.4); MONOCYTES 5.5 % (2-11); NEUTROPHILS 51.5 % (40-80); PLATELET COUNT 118 10x3/uL (130-400); RBC 4.63 10x6/uL (4.20-6.10); RDW 14.3 % (11.5-14.5); WBC 4.7 10x3/uL (4.8-10.8)
[2018-08-09 18:51] LABS: ALBUMIN 3.6 g/dL (3.4-5.0); ALKALINE PHOSPHATASE 57 U/L (46-116); ALT (SGPT) 40 U/L (10-68); BILIRUBIN - TOTAL 0.27 mg/dL (0.2-1.3); CARBON DIOXIDE 21.3 mmol/L (21.0-32.0); CHLORIDE - SERUM 100 mmol/L (98-107); CREATINE KINASE 403 UL (21-232); CREATININE - SERUM 1.3 mg/dL (0.6-1.3); POTASSIUM - SERUM 4.2 mmol/L (3.5-5.1); PROTEIN - SERUM 7.5 g/dL (6.4-8.2); SODIUM 132 mmol/L (136-145); UREA NITROGEN 34 mg/dL (7-18); eGFR NON AFRICAN AMERICAN 61 mL/min (90-120)
[2018-08-09 18:52] LABS: CALC OSMOLALITY 284 mosm/kg (275-300); GLUCOSE 321 mg/dL (74-106); TROPONIN-I < 0.017 ng/mL (0.000-0.060)
[2018-08-09 18:53] LABS: CKMB 5.4 U/L (0.0-3.6)
[2018-08-09 19:01] VITALS: BP 114/58
[2018-08-09 20:10] LABS: CREATINE KINASE 353 UL (21-232)
[2018-08-09 20:12] LABS: TROPONIN-I < 0.017 ng/mL (0.000-0.060)
[2018-08-09 22:41] VITALS: BP 128/69; BMI 33.3
[2018-08-10] VITALS: BP 127/71
[2018-08-10 02:27] LABS: TROPONIN-I < 0.017 ng/mL (0.000-0.060)
[2018-08-10 02:33] LABS: CREATINE KINASE 243 UL (21-232)
[2018-08-10 04:00] VITALS: BP 126/76
[2018-08-10 08:39] VITALS: BP 119/77
[2018-08-10 09:23] LABS: BASOPHILS 0.4 % (0-2); EOSINOPHILS 4.2 % (0-7); HEMATOCRIT 42.5 % (42.0-54.0); HEMOGLOBIN 14.6 g/dL (13.5-17.5); IMMATURE GRANULOCYTES 0.6 % (0-5); LYMPHOCYTES 34.7 % (15-50); MCH 29.8 pg (26.0-34.0); MCHC 34.4 g/dL (31.0-37.0); MCV 86.7 fL (80.0-100.0); MEAN PLATELET VOLUME 11.7 fL (7.4-10.4); MONOCYTES 4.8 % (2-11); NEUTROPHILS 55.3 % (40-80); PLATELET COUNT 107 10x3/uL (130-400); RDW 14.3 % (11.5-14.5)
[2018-08-10 09:49] LABS: CALC OSMOLALITY 296 mosm/kg (275-300); CALCIUM 8.9 mg/dL (8.5-10.1); CARBON DIOXIDE 24.3 mmol/L (21.0-32.0); CHLORIDE - SERUM 103 mmol/L (98-107); CKMB 2.3 U/L (0.0-3.6); CREATINE KINASE 195 UL (21-232); CREATININE - SERUM 1.1 mg/dL (0.6-1.3); GLUCOSE 334 mg/dL (74-106); SODIUM 139 mmol/L (136-145); TROPONIN-I < 0.017 ng/mL (0.000-0.060); UREA NITROGEN 29 mg/dL (7-18); eGFR NON AFRICAN AMERICAN 74 mL/min (90-120)
[2018-08-10 09:54] LABS: POTASSIUM - SERUM 5.1 mmol/L (3.5-5.1)
[2018-08-10 14:15] VITALS: Ht 177.8 cm; Wt 105.2 kg
[2018-08-10 19:03] VITALS: BP 124/76
== END 2018-08-10 19:38 | disposition home or self-care (01) ==
LOC: D.ER 17:27 → D.EDHOLD 19:01 → D.M2 19:01 → OBSVTIME 19:01 → D.M2 19:52
PROVIDERS: Emergency Medicine; Internal Medicine Interventional Cardiology
DX: I25.118 Atherosclerotic heart disease of native coronary artery with other forms of angina pectoris (principal); Z95.5 Presence of coronary angioplasty implant and graft; N17.9 Acute kidney failure, unspecified; I10 Essential (primary) hypertension; E78.5 Hyperlipidemia, unspecified; E11.9 Type 2 diabetes mellitus without complications; J44.9 Chronic obstructive pulmonary disease, unspecified; D69.6 Thrombocytopenia, unspecified

== ENCOUNTER 2018-12-16 14:03 | Emergency (ER) | payer MEDICARE, MEDICAID ==
[2018-12-16] MEDS ORDERED: BACLOFEN20 M1 PO (16:08)
[2018-12-16] MEDS ORDERED: VOLTAREN75 MG PO (16:08)
== END 2018-12-16 16:45 | disposition home or self-care (01) ==
LOC: D.ER 14:03
DX: S16.1XXA Strain of muscle, fascia and tendon at neck level, initial encounter (principal); X58.XXXA Exposure to other specified factors, initial encounter; Y93.9 Activity, unspecified; Y92.9 Unspecified place or not applicable; M62.838 Other muscle spasm